=== PATIENT | male | born 1940 | race Caucasian/White ===

== ENCOUNTER 2018-06-24 05:38 | Observation (INO) | payer OTHER ==
[2018-06-24] MEDS ORDERED: CEFAZOLIN 1 GM INJ (07:00)
[2018-06-24] MEDS ORDERED: LIDOCAINE 2% (SDV) 5 ML INJ (07:00)
[2018-06-24] MEDS ORDERED: PHENYLephrine (100 MCG/ML) 5ML SYG (08:31)
[2018-06-24] MEDS ORDERED: morphine 10 MG INJ (08:47)
[2018-06-24] MEDS: BUPIVACAINE 0.5% (SDV) 30 ML INJ (09:46)
[2018-06-24] MEDS: LIDOCAINE 1%/EPI 30 ML INJ (09:46)
[2018-06-24] MEDS: GELATIN SIZE 100 SPONGE (09:46)
[2018-06-24] MEDS: THROMBIN 5000 UNIT VIAL (09:47)
[2018-06-24] MEDS: POLYMYXIN/BACITRACIN 1L IRRIG (10:29)
[2018-06-24] MEDS ORDERED: DEXAMETHASONE 4 MG/ML 1 ML INJ (10:50)
[2018-06-24] MEDS ORDERED: ONDANSETRON 4 MG INJ ×2 (10:51→12:38)
[2018-06-24] MEDS: METHYLPREDNISOLONE ACET 80 MG/ML 1 ML (11:53)
[2018-06-24] MEDS ORDERED: ROCURONIUM 50 MG INJ (12:08)
[2018-06-24] MEDS ORDERED: ACETAMINOPHEN 1000MG/100ML IV 100 ML (12:08)
[2018-06-24] MEDS ORDERED: PROPOFOL 20 ML (12:08)
[2018-06-24] MEDS ORDERED: SUGAMMADEX SODIUM 200 MG/2 ML VIAL IV (12:09)
[2018-06-24] MEDS ORDERED: HYDROmorphONE 1 MG/5 ML IV SYRINGE IV ×3 (12:30)
[2018-06-24] MEDS ORDERED: MIDAZOLAM 1 MG/ML 2 ML INJ IV (12:30)
[2018-06-24] MEDS ORDERED: ONDANSETRON 4 MG INJ IV ×2 (12:30→13:00)
[2018-06-24] MEDS ORDERED: LABETALOL HCL 20MG INJ IV (12:30)
[2018-06-24] MEDS ORDERED: DIPHENHYDRAMINE 50 MG INJ IV (12:30)
[2018-06-24] MEDS ORDERED: ALBUTEROL 0.083% (NEB) 2.5 MG/3 ML AMP HHN (12:30)
[2018-06-24] MEDS ORDERED: hydrALAzine 20 MG INJ IV (12:30)
[2018-06-24] MEDS ORDERED: FENTAnyl 50 MCG/ML VIAL IV ×3 (12:30)
[2018-06-24] MEDS ORDERED: OXYCODONE/ACETAMINOPHEN (5/325) TAB PO ×2 (12:30)
[2018-06-24] MEDS ORDERED: METOCLOPRAMIDE 10 MG INJ IV (12:30)
[2018-06-24] MEDS ORDERED: EPHEDrine SULFATE 50 MG/5 ML SYG IV (12:30)
[2018-06-24] MEDS ORDERED: KETOROLAC 30 MG INJ IV (12:30)
[2018-06-24] MEDS ORDERED: MEPERIDINE 25 MG INJ IV (12:30)
[2018-06-24] MEDS ORDERED: NALOXONE (0.4 MG/ML) INJ IV (13:00)
[2018-06-24] MEDS: CEFAZOLIN 1 GM/50 ML (PMX) 50 ML IVPB ×2 (13:28→22:06)
[2018-06-24] MEDS: 1/2 NS + KCL 20 MEQ 1,000 ML IV (14:15)
[2018-06-24] MEDS ORDERED: TIZANIDINE 4 MG TAB PO (15:00)
[2018-06-24] MEDS: DILTIAZEM (CD) 120 MG CAP PO (15:18)
[2018-06-24 15:36] LABS: ANION GAP 7 (5-13); BLOOD UREA NITROGEN 27 mg/dl (7-20); CALCIUM 8.9 mg/dl (8.4-10.2); CARBON DIOXIDE 27 mmol/L (21-31); CHLORIDE 107 mmol/L (97-110); GLUCOSE 161 mg/dl (70-220); MAGNESIUM 1.9 mg/dl (1.7-2.5); POTASSIUM 4.7 mmol/L (3.5-5.1); SODIUM 141 mmol/L (135-144)
[2018-06-24] MEDS ORDERED: POLYVINYL ALCOHOL OP (17:00)
[2018-06-24] MEDS: ARTIFICIAL TEARS 15 ML OPH BOTH EYES (20:39)
[2018-06-24] MEDS: DESMOPRESSIN 0.1 MG TAB PO (20:40)
[2018-06-24] MEDS: GABAPENTIN 300 MG CAP PO (20:41)
[2018-06-24] MEDS: METOPROLOL 25 MG TAB PO (20:41)
[2018-06-24] MEDS: DORZOLAMIDE 2% 10 ML OPH BOTH EYES (20:42)
[2018-06-24] MEDS ORDERED: DESMOPRESSIN ACETATE 0.2 MG PO (21:00)
[2018-06-24] MEDS: HYDROCODONE/APAP (10/325) TAB PO (22:06)
[2018-06-24] MEDS: LATANOPROST 0.005% 2.5 ML OPH BOTH EYES (22:07)
[2018-06-24] MEDS ORDERED: OXYCODONE/ACETAMINOPHEN (10/325) TAB PO (23:30)
[2018-06-25] MEDS: OXYCODONE/ACETAMINOPHEN (10/325) TAB PO (00:13)
[2018-06-25] MEDS: 1/2 NS + KCL 20 MEQ 1,000 ML IV ×2 (02:22→10:00)
[2018-06-25] MEDS ORDERED: BUMETANIDE 1 MG TAB PO (06:00)
[2018-06-25] MEDS: CEFAZOLIN 1 GM/50 ML (PMX) 50 ML IVPB (06:05)
[2018-06-25] MEDS: BUMETANIDE 0.5 MG TAB PO (06:05)
[2018-06-25] MEDS: PANTOPRAZOLE (EC) 40 MG TAB PO (06:05)
[2018-06-25 06:19] LABS: ADD MAN DIFF? NO
[2018-06-25 06:38] LABS: BASOPHILS % 0.1 % (0.0-2.0); HEMATOCRIT 44.9 % (42.0-52.0); HEMOGLOBIN 14.7 g/dl (14.0-18.0); LYMPHOCYTES # 0.8 10^3/ul (0.8-2.9); LYMPHOCYTES % 5.6 % (15.0-51.0); MEAN CORPUSCULAR HEMOGLOBIN 32.7 pg (29.0-33.0); MEAN CORPUSCULAR HGB CONC 32.7 g/dl (32.0-37.0); MEAN PLATELET VOLUME 10.4 fl (7.4-10.4); MONOCYTE # 0.8 10^3/ul (0.3-0.9); MONOCYTES % 5.7 % (0.0-11.0); NEUTROPHIL # 11.7 10^3/ul (1.6-7.5); NEUTROPHILS % 87.6 % (39.0-77.0); PLATELET COUNT 167 10^3/UL (140-415); RED BLOOD COUNT 4.49 10^6/ul (4.70-6.10); RED CELL DISTRIBUTION WIDTH 14.6 % (11.5-14.5)
[2018-06-25 06:38] LABS: WHITE BLOOD COUNT 13.4 10^3/ul (4.8-10.8)
[2018-06-25 07:02] LABS: ANION GAP 7 (5-13); BLOOD UREA NITROGEN 28 mg/dl (7-20); CALCIUM 8.5 mg/dl (8.4-10.2); CARBON DIOXIDE 27 mmol/L (21-31); CHLORIDE 104 mmol/L (97-110); CREATININE 0.87 mg/dl (0.61-1.24); GLUCOSE 144 mg/dl (70-220); SODIUM 138 mmol/L (135-144)
[2018-06-25 07:19] LABS: PHOSPHORUS 4.7 mg/dl (2.5-4.9)
[2018-06-25 07:19] LABS: POTASSIUM 5.2 mmol/L (3.5-5.1)
[2018-06-25] MEDS: ACCU-CHEK XX ×2 (08:17→11:20)
[2018-06-25] MEDS: ARTIFICIAL TEARS 15 ML OPH BOTH EYES ×2 (08:18→13:00)
[2018-06-25] MEDS: ARIPIPRAZOLE 2 MG TAB PO (08:20)
[2018-06-25] MEDS: LINAGLIPTIN 5 MG TABLET PO (08:22)
[2018-06-25] MEDS: ESCITALOPRAM 10 MG TAB PO (08:22)
[2018-06-25] MEDS: DILTIAZEM (CD) 120 MG CAP PO (08:23)
[2018-06-25] MEDS: METOPROLOL 25 MG TAB PO (08:23)
[2018-06-25] MEDS: DORZOLAMIDE 2% 10 ML OPH BOTH EYES (08:24)
[2018-06-25] MEDS: INSULIN ASPART [NOVOLOG] 3 ML PEN SC ×2 (08:30→11:50)
[2018-06-25] MEDS ORDERED: ESCITALOPRAM OXALATE 10 MG PO (09:00)
[2018-06-25] MEDS ORDERED: NON-FORMULARY/PATIENT OWN MED (Bumetanide* 2 MG) PO (09:00)
[2018-06-25] MEDS ORDERED: NON-FORMULARY/PATIENT OWN MED (Latanoprost 1 DROP) BOTH EYES (09:00)
[2018-06-25] MEDS ORDERED: VITAMIN A & D 5 GM OINT PACKET TOP (13:54)
== END 2018-06-25 14:50 | disposition home or self-care (01) ==
LOC: REC 05:38 → TEL 13:50
DX: M48.061 Spinal stenosis, lumbar region without neurogenic claudication (principal); M51.26 Other intervertebral disc displacement, lumbar region; I12.9 Hypertensive chronic kidney disease with stage 1 through stage 4 chronic kidney disease, or unspecified chronic kidney disease; E11.22 Type 2 diabetes mellitus with diabetic chronic kidney disease; N18.2 Chronic kidney disease, stage 2 (mild); N40.0 Benign prostatic hyperplasia without lower urinary tract symptoms; E11.40 Type 2 diabetes mellitus with diabetic neuropathy, unspecified; I48.2 Chronic atrial fibrillation; Z79.01 Long term (current) use of anticoagulants; F32.9 Major depressive disorder, single episode, unspecified; Z23 Encounter for immunization
CPT/HCPCS: 63030; 71045; 72110; 80048; 82962; 83735; 84100; 85025; 90686; 97162; 99217; G0378